=== PATIENT | male | born 1965 | race Two or more races ===

== ENCOUNTER 2024-09-03 07:41 | Day surgery (SDC) | payer OTHER ==
[2024-08-25 11:44] VITALS: BP 123/78
[~2024-09-03] VITALS: Ht 180.3 cm; Wt 77.1 kg
[~2024-09-03 07:41] MED LIST: TOPROL XL25 M1 PO
[2024-09-03] MEDS ORDERED: HEMOSTATIC MATRIX 1 KIT KIT TOP ONE (11:26)
[2024-09-03] MEDS ORDERED: BUPIVACAINE HCL/Mpf 0.5% 10ML VIAL ONE (11:27)
[2024-09-03] MEDS ORDERED: DIBUCAINE 30 GM TUBE ONE (11:27)
[2024-09-03] MEDS ORDERED: BUPIVACAINE LIPOSOME/PF 266 MG/20 ML VIAL IJ ONE (11:27)
[2024-09-03] MEDS ORDERED: LIDOCAINE HCL 1%/EPINEPHRINE 20ML VIAL IJ ONE (11:27)
[2024-09-03] MEDS ORDERED: POVIDONE-IODINE 118 ML BOTT TOP ONE (11:27)
[2024-09-03] MEDS ORDERED: BUPIVACAINE HCL/MPF 0.5% 30ML VIAL ONE (11:28)
[2024-09-03] MEDS ORDERED: METRONIDAZOLE/SODIUM CHLORIDE 500 MG/100 ML PIGGYBACK IV ONE (11:28)
[2024-09-03] MEDS ORDERED: CEFTRIAXONE SODIUM 2,000 MG VIAL ONE (11:28)
[2024-09-03] MEDS ORDERED: OXYCODONE HCL5 MG PO (12:51)
[2024-09-03] MEDS ORDERED: TAMSULOSIN HCL 0.4 MG CAP PO ONE ×2 (13:00→14:52)
== END 2024-09-03 18:25 | disposition home or self-care (01) ==
LOC: CIR.AMB 07:41
PROVIDERS: ATTEND Surgery
DX: D12.9 Benign neoplasm of anus and anal canal (principal); K64.8 Other hemorrhoids; K62.6 Ulcer of anus and rectum; K62.89 Other specified diseases of anus and rectum; K62.5 Hemorrhage of anus and rectum; K59.4 Anal spasm; I10 Essential (primary) hypertension